=== PATIENT | female | born 1965 | race Caucasian/White ===

== ENCOUNTER → 2017-02-06 | Outpatient (CLI) | payer OTHER ==
--- NOTE | 2017-02-06 11:59 | PCVCIMAG ---
APPROVED REPORT Exam: Stress Echocardiogram Indication: BRADYCARIDA Patient Location: Echo lab Stress Nurse: Cathryn Parsons RN Status: routine HR: 75 bpm Medical History Medical History: Fatigue chest pain Procedure The patient underwent an Exercise Stress Test using the Douglas Protocol. Blood pressure, heart rate, and EKG were monitored. An Echocardiogram was performed by hvac controls technician in four stages in quad fashion. At peak stress, four selected images were obtained and placed side by side with resting images for comparison. Stress Test Details Stress Test: Exercise stress testing was performed using a Douglas protocol. HR Resting HR: 75 bpmMax Heart Rate (APMHR): 168 bpm Max HR Achieved: 164 bpmTarget HR (85% APMHR): 142 bpm % of APMHR: 97 HR response to stress: Normal HR response to stress BP Resting BP: 104/76 mmHg Max BP: 160/78 mmHg ECG Resting ECG: Sinus Bradycardia Stress ECG: Sinus Tachycardia Arrhythmia: VPC's with bigeminy Recovery ECG: Sinus Rhythm Clinical Reason for Termination: Maximal effort Exercise duration: 10 min sec Highest Stage Achieved: Stage 3: 3.4 mph at 14% grade. Exercise capacity: 13.40 METs Overall Exercise Capacity for Age: Normal Stress ECG Conclusion 1.SUBJECTIVELY NEGATIVE FOR ISCHEMIA 2. ELECTROCARDIOGRAPHICALLY WITHOUT ST CHANGES DIAGNOSTIC OF ISCHEMIA 3. ADEQUATE FUNCTIONAL CAPACITY 4. NO EVIDENCE OF CHRONOTROPIC INCOMPETENCE 5. EXERCISE INDUCED VENTRICULAR BIGEMINY Pre-Stress Echo The resting Echocardiogram showed normal left ventricular contractility with an estimated Ejection Fraction of about >55%. Normal wall motion in all segments on baseline images. Post-Stress Echo The stress Echocardiogram showed normal left ventricular contractility with an estimated Ejection Fraction of about 55-60%. Normal augmentation of wall motion in all segments on post stress images. Clinical Normal augmentation of myocardial wall segments using a 17 segment model. Conclusion Clinical Response: Non-ischemic Exercise Capacity: Average Stress ECG Response: Equivocal Stress Echo Images: Non-ischemic 1. INTERMEDIATE RISK STUDY BASED ONLY ON DEVELOPMENT OF EXERSIONAL VENTRICULAR BIGEMINY Other Information Study Quality: Good <Conclusion> 1. INTERMEDIATE RISK STUDY BASED ONLY ON DEVELOPMENT OF EXERSIONAL VENTRICULAR BIGEMINY
== END | disposition home or self-care (01) ==
LOC: PCVCIMAG 08:46
PROVIDERS: ATTEND Internal Medicine
DX: I10 Essential (primary) hypertension (principal); E78.4 Other hyperlipidemia; Z88.0 Allergy status to penicillin; Z88.8 Allergy status to other drugs, medicaments and biological substances; Z79.899 Other long term (current) drug therapy; Z98.51 Tubal ligation status
CPT/HCPCS: 80061; 93325; 93351; G0463